=== PATIENT | female | born 1950 | race African-American/Black ===

== ENCOUNTER → 2016-08-27 | Outpatient (CLI) | payer MEDICARE, MEDICAID ==
[~2016-08-27] MED LIST: ASPI-1035 PO; BENA40TA3 PO; CLON0.2T PO; COLC0.6T66 PO; DILT240C3 PO; HYDR-523 PO; HYDR25TA PO; METO100T5 PO; NICO1PAT16 TD; OMEP20TA80 PO
== END | disposition home or self-care (01) ==
LOC: US 07:26
PROVIDERS: ATTEND Internal Medicine Gastroenterology
DX: B19.20 Unspecified viral hepatitis C without hepatic coma (principal)
CPT/HCPCS: 76700

== ENCOUNTER 2017-01-31 18:41 | Emergency (ER) | payer MEDICARE, MEDICAID ==
[~2017-01-31] VITALS: Ht 157.5 cm; Wt 70.0 kg
[~2017-01-31 18:41] MED LIST changes: -ASPI-1035 PO; +ASPI-1159 PO; +OMEP20TA2 PO; -OMEP20TA80 PO
[2017-01-31] MEDS ORDERED: TETANUS, DIPHTHERIA, PERTUSSIS VAC/PF 0.5ML (>7YR OLD) IM ONE (22:30)
[2017-01-31] MEDS ORDERED: IBUPROFEN 600MG TABLET PO ONE (22:30)
[2017-01-31] MEDS ORDERED: HYDROCODONE/ACETAMINOPHEN 5/325MG TABLET PO ONE (22:45)
[2017-02-01] MEDS ORDERED: BACITRACIN ZINC OINT UDPKT TOP ONE (00:15)
[2017-02-01 00:45] VITALS: BP 106/86
== END 2017-02-01 00:45 | disposition home or self-care (01) ==
LOC: ER 22:02
DX: R07.9 Chest pain, unspecified (principal); F17.200 Nicotine dependence, unspecified, uncomplicated; I11.9 Hypertensive heart disease without heart failure; I25.10 Atherosclerotic heart disease of native coronary artery without angina pectoris; Z79.82 Long term (current) use of aspirin; W54.0XXA Bitten by dog, initial encounter; Y93.89 Activity, other specified; Y92.89 Other specified places as the place of occurrence of the external cause; Y99.8 Other external cause status
CPT/HCPCS: 74022; 90471; 90715; 99284

== ENCOUNTER 2017-03-28 13:09 | Inpatient (IN) | payer MEDICARE, MEDICAID ==
[~2017-03-28] VITALS: Ht 160 cm; Wt 73.1 kg
[2017-03-28] MEDS ORDERED: LABETALOL HCL 20MG/4ML CARPUJECT IV PRN (14:15)
[2017-03-28 14:39] LABS: BASOPHILS % 0.7 % (0.0-2.0); EOSINOPHILS % 1.2 % (0.0-5.0); HEMOGLOBIN. 13.6 g/dL (12.0-16.0); LYMPHOCYTES % 31.6 % (20.0-50.0); MEAN CORPUSCULAR HEMOGLOBIN 30.1 pg (28.0-32.0); MEAN CORPUSCULAR VOLUME 88.8 fL (81.0-99.0); MEAN PLATELET VOLUME 9.9 fl (7.4-10.4); MONOCYTES % 5.6 % (2.0-8.0); NEUTROPHILS % 60.9 % (40.0-76.0); PLATELET 149 x1000/uL (130-400); RED CELL DISTRIBUTION WIDTH 14.4 % (11.6-14.6)
[2017-03-28 14:42] LABS: PROTHROMBIN TIME 10.6 sec (9.4-11.6)
[2017-03-28 14:48] LABS: CARBON DIOXIDE 31 mEq/L (21-32); CHLORIDE 106 mEq/L (98-107); TROPONIN I 0.03 ng/mL (0.00-0.04)
[2017-03-28] MEDS ORDERED: HYDROCODONE/ACETAMINOPHEN 5/325MG TABLET PO ONE (15:15)
[2017-03-28 16:13] LABS: CLARITY URINE CLEAR (CLEAR); COLOR URINE YELLOW (YELLOW); GLUCOSE URINE NEGATIVE (NEGATIVE); KETONES URINE NEGATIVE (NEGATIVE); LEUKOCYTE ESTERASE URINE TRACE (NEGATIVE); NITRITE URINE NEGATIVE (NEGATIVE); OCCULT BLOOD URINE 1+ (NEGATIVE); PH URINE 5.5 (4.5-8.0); PROTEIN URINE NEGATIVE (NEGATIVE); UROBILINOGEN URINE 0.2 E.U./dL (0.2-1.0)
[2017-03-28] MEDS ORDERED: LABETALOL 5MG/ML SYR 20 MG/4 ML SYRINGE IV PRN (17:00)
[2017-03-28 17:20] VITALS: BP 193/86
[2017-03-28] MEDS ORDERED: ACETAMINOPHEN 325MG TABLET PO PRN (18:45)
[2017-03-28] MEDS ORDERED: LORAZEPAM 0.5MG TABLET PO PRN (18:45)
[2017-03-28] MEDS ORDERED: POTASSIUM CHLORIDE 20MEQ TABLET SR PO NR (19:00)
[2017-03-28 20:00] VITALS: BP 198/88
[2017-03-28] MEDS: IPRATROPIUM/ALBUTEROL 0.5-3(2.5)MG/3ML NEB HHN SCH (20:17)
[2017-03-28] MEDS: BENAZEPRIL 20MG TABLET PO SCH (20:25)
[2017-03-28] MEDS: CLONIDINE 0.1MG TABLET PO PRN (20:25)
[2017-03-28] MEDS: ENOXAPARIN 40MG/0.4ML SYR SUBCUT SCH (20:26)
[2017-03-28] MEDS: ZOLPIDEM TARTRATE 5MG TABLET PO PRN (21:54)
[2017-03-28] MEDS ORDERED: COLCHICINE 0.6MG TABLET PO SCH (22:15)
[2017-03-28] MEDS: HYDROCODONE/ACETAMINOPHEN 5/325MG TABLET PO PRN (22:48)
[2017-03-28] MEDS: COLCHICINE 0.6MG TABLET PO SCH (22:49)
[2017-03-29] VITALS: BP 157/74
[2017-03-29] MEDS: IPRATROPIUM/ALBUTEROL 0.5-3(2.5)MG/3ML NEB HHN SCH ×6 (00:15→21:02)
[2017-03-29] MEDS: NICOTINE 21MG PATCH TD SCH ×2 (00:48→09:17)
[2017-03-29 04:00] VITALS: BP 165/84
[2017-03-29] MEDS: CLONIDINE 0.1MG TABLET PO PRN ×2 (05:13→11:55)
[2017-03-29 06:58] LABS: HEMATOCRIT. 36.4 % (36.0-48.0); HEMOGLOBIN. 12.3 g/dL (12.0-16.0); MEAN CORPUSCULAR HEMOGLOBIN 30.3 pg (28.0-32.0); MEAN CORPUSCULAR VOLUME 89.2 fL (81.0-99.0); MEAN PLATELET VOLUME 10.5 fl (7.4-10.4); PLATELET 125 x1000/uL (130-400); RED BLOOD CELL COUNT 4.08 mill/uL (4.2-5.4); RED CELL DISTRIBUTION WIDTH 14.6 % (11.6-14.6)
[2017-03-29 07:11] LABS: *AMPHETAMINES SCREEN URINE NEGATIVE (NEGATIVE); *BARBITURATES SCREEN URINE NEGATIVE (NEGATIVE); *BENZODIAZEPINES SCREEN URINE NEGATIVE (NEGATIVE); *COCAINE SCREEN URINE NEGATIVE (NEGATIVE); CANNABINOID URINE SCREEN PRESUMTIVE POSITIVE (NEGATIVE); METHADONE URINE SCREEN NEGATIVE (NEGATIVE); OPIATES URINE SCREEN PRESUMTIVE POSITIVE (NEGATIVE); PHENCYCLIDINE URINE SCREEN NEGATIVE (NEGATIVE)
[2017-03-29 07:26] LABS: CARBON DIOXIDE 30 mEq/L (21-32); CHLORIDE 103 mEq/L (98-107); HDL CHOLESTEROL 43 mg/dL (40-59); LDL CHOLESTEROL 77 mg/dL (5-100)
[2017-03-29 08:00] VITALS: BP 157/73
[2017-03-29] MEDS: ASPIRIN 81MG EC TABLET PO SCH (08:39)
[2017-03-29] MEDS: HYDROCHLOROTHIAZIDE 25MG TABLET PO SCH (08:39)
[2017-03-29] MEDS: BENAZEPRIL 20MG TABLET PO SCH (08:39)
[2017-03-29] MEDS: COLCHICINE 0.6MG TABLET PO SCH ×2 (08:39→21:11)
[2017-03-29] MEDS: OMEPRAZOLE 20MG CAPSULE EXTENDED RELEASE PO SCH (08:39)
[2017-03-29] MEDS: DOCUSATE SODIUM 100MG CAPSULE PO SCH (08:40)
[2017-03-29] MEDS: POTASSIUM CHLORIDE 20MEQ TABLET SR PO SCH (08:40)
[2017-03-29] MEDS: METOPROLOL TARTRATE 100MG TABLET PO SCH ×2 (08:40→21:11)
[2017-03-29] MEDS: HYDROCODONE/ACETAMINOPHEN 5/325MG TABLET PO PRN (08:41)
[2017-03-29] MEDS: DILTIAZEM HCL 300MG CAPSULE SR 24HR PO SCH (09:17)
[2017-03-29 09:47] LABS: VITAMIN B12 SERUM 259 pg/mL (211-911)
[2017-03-29] MEDS: ONDANSETRON HCL 4MG/2ML VIAL IV PRN (11:55)
[2017-03-29 12:00] VITALS: BP_SYST 164; BP_SYST 165; BP_SYST 174; BP_DIAS 83; BP_DIAS 93; BP_DIAS 94
[2017-03-29 16:00] VITALS: BP 138/76
[2017-03-29 20:00] VITALS: BP_SYST 154; BP_SYST 161; BP_SYST 167; BP_DIAS 75; BP_DIAS 77; BP_DIAS 82
[2017-03-29] MEDS: ENOXAPARIN 40MG/0.4ML SYR SUBCUT SCH (21:11)
[2017-03-29] MEDS: ZOLPIDEM TARTRATE 5MG TABLET PO PRN (23:15)
[2017-03-29 23:41] LABS: PLATELET ESTIMATE SLIGHTLY DECREASED
[2017-03-30] VITALS: BP 147/84
[2017-03-30] MEDS: IPRATROPIUM/ALBUTEROL 0.5-3(2.5)MG/3ML NEB HHN SCH ×6 (00:21→20:17)
[2017-03-30 04:00] VITALS: BP 144/78
[2017-03-30] MEDS: OMEPRAZOLE 20MG CAPSULE EXTENDED RELEASE PO SCH (07:34)
[2017-03-30 08:00] VITALS: BP_SYST 171; BP_SYST 174; BP_DIAS 79; BP_DIAS 90; BP_DIAS 95
[2017-03-30] MEDS ORDERED: SORBITOL 70% SOLN 30ML PO PRN (08:00)
[2017-03-30] MEDS: HYDROCODONE/ACETAMINOPHEN 5/325MG TABLET PO PRN ×2 (08:06→20:23)
[2017-03-30] MEDS: DILTIAZEM HCL 300MG CAPSULE SR 24HR PO SCH (09:47)
[2017-03-30] MEDS: NICOTINE 21MG PATCH TD SCH (09:47)
[2017-03-30] MEDS: CAPSAICIN 0.075% CREAM 60GM TOP SCH ×2 (09:47→22:59)
[2017-03-30] MEDS: HYDROCHLOROTHIAZIDE 25MG TABLET PO SCH (09:47)
[2017-03-30] MEDS: DOCUSATE SODIUM 100MG CAPSULE PO SCH (09:48)
[2017-03-30] MEDS: BENAZEPRIL 20MG TABLET PO SCH (09:49)
[2017-03-30] MEDS: COLCHICINE 0.6MG TABLET PO SCH (09:49)
[2017-03-30] MEDS: METOPROLOL TARTRATE 100MG TABLET PO SCH ×2 (09:49→20:21)
[2017-03-30] MEDS: POTASSIUM CHLORIDE 20MEQ TABLET SR PO SCH (09:49)
[2017-03-30] MEDS: ASPIRIN 81MG EC TABLET PO SCH (09:50)
[2017-03-30] MEDS: CYANOCOBALAMIN 1000MCG/ML VIAL IM SCH (09:50)
[2017-03-30] MEDS: ONDANSETRON HCL 4MG/2ML VIAL IV PRN (11:43)
[2017-03-30 12:00] VITALS: BP 155/90
[2017-03-30 16:00] VITALS: BP_SYST 159; BP_SYST 163; BP_SYST 169; BP_DIAS 72; BP_DIAS 75; BP_DIAS 77
[2017-03-30] MEDS: CLONIDINE 0.1MG TABLET PO PRN ×2 (16:50→23:10)
[2017-03-30 20:00] VITALS: BP_SYST 144; BP_SYST 153; BP_SYST 154; BP_DIAS 65; BP_DIAS 72; BP_DIAS 73
[2017-03-30] MEDS: ENOXAPARIN 40MG/0.4ML SYR SUBCUT SCH (20:23)
[2017-03-30] MEDS: ZOLPIDEM TARTRATE 5MG TABLET PO PRN (22:59)
[2017-03-31] VITALS: BP 158/77
[2017-03-31] MEDS: IPRATROPIUM/ALBUTEROL 0.5-3(2.5)MG/3ML NEB HHN SCH ×3 (00:27→07:40)
[2017-03-31 04:00] VITALS: BP 134/67
[2017-03-31] MEDS: HYDROCODONE/ACETAMINOPHEN 5/325MG TABLET PO PRN ×2 (04:52→11:03)
[2017-03-31] MEDS: CAPSAICIN 0.075% CREAM 60GM TOP SCH (05:27)
[2017-03-31 07:08] LABS: BASOPHILS % 0.8 % (0.0-2.0); EOSINOPHILS % 4.2 % (0.0-5.0); HEMATOCRIT. 40.6 % (36.0-48.0); HEMOGLOBIN. 13.6 g/dL (12.0-16.0); LYMPHOCYTES % 49.5 % (20.0-50.0); MEAN CORPUSCULAR HEMOGLOBIN 30.2 pg (28.0-32.0); MEAN CORPUSCULAR VOLUME 90.5 fL (81.0-99.0); MONOCYTES % 6.6 % (2.0-8.0); NEUTROPHILS % 38.9 % (40.0-76.0); PLATELET 139 x1000/uL (130-400); RED BLOOD CELL COUNT 4.49 mill/uL (4.2-5.4); RED CELL DISTRIBUTION WIDTH 14.7 % (11.6-14.6)
[2017-03-31 07:28] LABS: CARBON DIOXIDE 28 mEq/L (21-32); CHLORIDE 105 mEq/L (98-107)
[2017-03-31 08:00] VITALS: BP_SYST 116; BP_SYST 119; BP_SYST 125; BP_DIAS 68; BP_DIAS 69; BP_DIAS 71
[2017-03-31] MEDS: NICOTINE 21MG PATCH TD SCH (08:43)
[2017-03-31] MEDS: BENAZEPRIL 20MG TABLET PO SCH (08:44)
[2017-03-31] MEDS: CYANOCOBALAMIN 1000MCG/ML VIAL IM SCH (08:44)
[2017-03-31] MEDS: DILTIAZEM HCL 300MG CAPSULE SR 24HR PO SCH (08:45)
[2017-03-31] MEDS: OMEPRAZOLE 20MG CAPSULE EXTENDED RELEASE PO SCH (08:45)
[2017-03-31] MEDS: DOCUSATE SODIUM 100MG CAPSULE PO SCH (08:45)
[2017-03-31] MEDS: ASPIRIN 81MG EC TABLET PO SCH (08:45)
[2017-03-31] MEDS: POTASSIUM CHLORIDE 20MEQ TABLET SR PO SCH (08:45)
[2017-03-31] MEDS: COLCHICINE 0.6MG TABLET PO SCH (08:48)
[2017-03-31] MEDS: METOPROLOL TARTRATE 100MG TABLET PO SCH (08:49)
[2017-03-31] MEDS: HYDROCHLOROTHIAZIDE 25MG TABLET PO SCH (08:50)
[2017-03-31 10:40] VITALS: BP 125/71
[2017-03-31 11:03] VITALS: BP 125/71
[2017-04-01 19:12] LABS: ANTI-DNA DOUBLE STRANDED QUANT 1 IU/mL (0-9); ANTI-NUCLEAR ANTIBODIES DIRECT Negative (Negative)
[2017-04-04] MEDS ORDERED: CLONIDINE HCL 0.3MG/24HR PATCH TD SCH (09:00)
== END 2017-03-31 12:15 | disposition home or self-care (01) | DRG 293 ==
LOC: ER 14:40 → 7WST 15:19 → ENRESERV 15:26 → 7WST 18:28
PROVIDERS: ADMIT Internal Medicine Geriatric Medicine; ATTEND Internal Medicine Geriatric Medicine
DX: I11.0 Hypertensive heart disease with heart failure (principal); D69.6 Thrombocytopenia, unspecified; J44.9 Chronic obstructive pulmonary disease, unspecified; I25.10 Atherosclerotic heart disease of native coronary artery without angina pectoris; I50.9 Heart failure, unspecified; G90.8 Other disorders of autonomic nervous system; E87.6 Hypokalemia; F12.10 Cannabis abuse, uncomplicated; F17.200 Nicotine dependence, unspecified, uncomplicated; M10.9 Gout, unspecified; K59.00 Constipation, unspecified; M19.90 Unspecified osteoarthritis, unspecified site; Z79.899 Other long term (current) drug therapy; Z86.73 Personal history of transient ischemic attack (TIA), and cerebral infarction without residual deficits; Z95.1 Presence of aortocoronary bypass graft; Z86.19 Personal history of other infectious and parasitic diseases; Z79.82 Long term (current) use of aspirin
CPT/HCPCS: 36415; 70551; 71010; 80048; 80053; 80061; 80305; 81001; 82270; 82607; 83036; 84484; 85025; 85610; 85651; 86038; 86225; 87077; 87086; 93005; 93306; 93880; 94640; 96374; 97162; 99285; J1650; J2405; J3420; J3490; J7620

== ENCOUNTER 2018-04-22 07:03 | Inpatient (IN) | payer MEDICARE, MEDICAID ==
[~2018-04-22] VITALS: Ht 157.5 cm; Wt 70.8 kg
[2018-04-22] VITALS (9 sets, daily range): BP systolic 131–194; BP diastolic 69–116
[~2018-04-22 07:03] MED LIST changes: -BENA40TA3 PO; +BENA40TA9 PO; -CLON0.2T PO; -HYDR25TA PO; +METO100T16 PO; -METO100T5 PO
[2018-04-22] MEDS ORDERED: LIP40 MT (08:45)
[2018-04-22] MEDS ORDERED: CLON1PAT12 TP (08:45)
[2018-04-22] MEDS ORDERED: ALLO100T MT (08:45)
[2018-04-22] MEDS ORDERED: LIDOCAINE HCL 1% 20ML VIAL (Pyxis) INJ ONE (09:10)
[2018-04-22] MEDS ORDERED: IODIXANOL 320MG/ML 100 ML BOTTLE IV ONE ×2 (09:11→10:28)
[2018-04-22] MEDS ORDERED: FENTANYL CITRATE/PF 50MCG/ML 2ML VIAL ONE ×2 (09:56→11:02)
[2018-04-22] MEDS ORDERED: MIDAZOLAM HCL 2 MG/2 ML VIAL ONE ×2 (09:56→11:02)
[2018-04-22] MEDS ORDERED: IOHEXOL-300 100 ML BOTTLE ONE (10:14)
[2018-04-22] MEDS ORDERED: HYDRALAZINE 20MG/ML VIAL ONE (11:11)
[2018-04-22] MEDS ORDERED: ASPIRIN 325MG TABLET ONE (11:29)
[2018-04-22] MEDS ORDERED: CLOPIDOGREL 75MG TABLET ONE (11:29)
[2018-04-22] MEDS ORDERED: ACETAMINOPHEN 325MG TABLET PO PRN (11:30)
[2018-04-22] MEDS ORDERED: ATROPINE SULFATE 1MG/10ML SYR IV PRN (11:30)
[2018-04-22] MEDS ORDERED: ONDANSETRON HCL 4MG/2ML INJ IV PRN (11:30)
[2018-04-22] MEDS ORDERED: LORAZEPAM 2MG/ML CPJ IM PRN (13:15)
[2018-04-22] MEDS: LORAZEPAM 2MG/ML CPJ IV PRN ×2 (14:03→20:16)
[2018-04-22] MEDS ORDERED: IPRATROPIUM/ALBUTEROL 0.5-3(2.5)MG/3ML NEB HHN PRN (14:45)
[2018-04-22] MEDS ORDERED: HEPARIN SODIUM 1,000 UNIT/1ML VIAL IV ONE (14:55)
[2018-04-22] MEDS ORDERED: MORPHINE SULFATE 4 MG/ML CPJ (NOT FOR IM USE) IV NR (15:00)
[2018-04-22] MEDS ORDERED: MORPHINE SULFATE 4 MG/ML CPJ (NOT FOR IM USE) IV SCH (15:05)
[2018-04-22] MEDS ORDERED: MORPHINE SULFATE 4 MG/ML CPJ (NOT FOR IM USE) IV PRN ×2 (15:30→15:45)
[2018-04-22] MEDS ORDERED: NITROGLYCERIN 50MCG/ML 10ML VIAL (CATH LAB) IV ONE (15:55)
[2018-04-22] MEDS ORDERED: NICARDIPINE 100MCG/ML 10ML VIAL (CATH LAB) IV ONE (15:55)
[2018-04-22] MEDS ORDERED: HYDROCODONE/ACETAMINOPHEN 5/325MG TABLET PO PRN (18:15)
[2018-04-22] MEDS ORDERED: ENALAPRIL 1.25 MG in DEXTROSE 5% WATER 49 ML IV PRN (18:30)
[2018-04-22] MEDS ORDERED: ENALAPRIL 1.25MG/ML VIAL 1ML IV PRN (18:45)
[2018-04-22] MEDS: OMEPRAZOLE 20MG CAPSULE EXTENDED RELEASE PO SCH (20:11)
[2018-04-22] MEDS: ATORVASTATIN CALCIUM 40MG TABLET PO SCH (20:11)
[2018-04-22] MEDS: METOPROLOL TARTRATE 100MG TABLET PO SCH (20:12)
[2018-04-22] MEDS ORDERED: ZOLPIDEM TARTRATE 5MG TABLET PO SCH (21:00)
[2018-04-23] VITALS (8 sets, daily range): BP systolic 96–172; BP diastolic 54–81
[2018-04-23] MEDS: OMEPRAZOLE 20MG CAPSULE EXTENDED RELEASE PO SCH (06:15)
[2018-04-23 06:17] LABS: BASOPHILS % 0.6 % (0.0-2.0); HEMATOCRIT. 34.8 % (36.0-48.0); HEMOGLOBIN. 11.6 g/dL (12.0-16.0); LYMPHOCYTES % 13.4 % (20.0-50.0); MEAN CORPUSCULAR HEMOGLOBIN 29.1 pg (28.0-32.0); MEAN CORPUSCULAR VOLUME 86.8 fL (81.0-99.0); MEAN PLATELET VOLUME 11.6 fl (7.4-10.4); MONOCYTES % 8.9 % (2.0-8.0); NEUTROPHILS % 74.1 % (40.0-76.0); PLATELET 86 x1000/uL (130-400); RED CELL DISTRIBUTION WIDTH 16.1 % (11.6-14.6)
[2018-04-23 07:17] LABS: CHLORIDE 102 mEq/L (98-107)
[2018-04-23] MEDS ORDERED: POTASSIUM CHLORIDE 20MEQ TABLET SR PO SCH (07:45)
[2018-04-23] MEDS: ATORVASTATIN CALCIUM 40MG TABLET PO SCH (08:03)
[2018-04-23] MEDS: METOPROLOL TARTRATE 100MG TABLET PO SCH (08:05)
[2018-04-23] MEDS ORDERED: DILTIAZEM HCL 120MG CAPSULE SR 12HR PO SCH (09:00)
[2018-04-23] MEDS ORDERED: ALLOPURINOL 100 MG TABLET PO SCH (09:00)
[2018-04-23] MEDS ORDERED: CLOPIDOGREL 75MG TABLET PO SCH (09:00)
[2018-04-23] MEDS ORDERED: ASPIRIN 325MG TABLET PO SCH (09:00)
[2018-04-23] MEDS ORDERED: BENAZEPRIL 10MG TABLET PO SCH (09:00)
== END 2018-04-23 13:00 | disposition home or self-care (01) | DRG 247 ==
LOC: CCL 07:03 → 3WST 07:04
PROVIDERS: ADMIT Specialist; ATTEND Specialist
PROC: 4A023N7 Measurement of Cardiac Sampling and Pressure, Left Heart, Percutaneous Approach (ICD-10-PCS; principal; 2018-04-22)
PROC: 027034Z Dilation of Coronary Artery, One Artery with Drug-eluting Intraluminal Device, Percutaneous Approach (ICD-10-PCS; 2018-04-22)
PROC: B2111ZZ Fluoroscopy of Multiple Coronary Arteries using Low Osmolar Contrast (ICD-10-PCS; 2018-04-22)
PROC: B2151ZZ Fluoroscopy of Left Heart using Low Osmolar Contrast (ICD-10-PCS; 2018-04-22)
PROC: B2131ZZ Fluoroscopy of Multiple Coronary Artery Bypass Grafts using Low Osmolar Contrast (ICD-10-PCS; 2018-04-22)
DX: I25.10 Atherosclerotic heart disease of native coronary artery without angina pectoris (principal); E78.5 Hyperlipidemia, unspecified; F41.9 Anxiety disorder, unspecified; I11.9 Hypertensive heart disease without heart failure; I27.20 Pulmonary hypertension, unspecified; J44.9 Chronic obstructive pulmonary disease, unspecified; K21.9 Gastro-esophageal reflux disease without esophagitis; Z95.1 Presence of aortocoronary bypass graft; I25.2 Old myocardial infarction; Z95.5 Presence of coronary angioplasty implant and graft; Z79.899 Other long term (current) drug therapy
CPT/HCPCS: 36415; 80048; 85347; 92928; 92978; 93005; 93459; 94640; C1725; C1753; C1760; C1769; C1874; C1887; C1893; J0360; J1644; J2060; J2250; J2270; J3010; J3490; J7030; J7620; Q9967

== ENCOUNTER 2019-01-16 08:58 | Inpatient (IN) | payer MEDICARE, MEDICAID ==
[~2019-01-16] VITALS: Ht 160 cm; Wt 70.3 kg
[~2019-01-16 08:58] MED LIST changes: +ALLO100T MT; -ASPI-1159 PO; +ASPI-1393 PO; +CLON1PAT12 TP; +LIP40 MT
[2019-01-16] MEDS ORDERED: ASPIRIN 81MG TABLET PO ONE (09:45)
[2019-01-16] MEDS: NITROGLYCERIN 0.4MG TABLET SL SL PRN ×2 (09:50→11:15)
[2019-01-16 10:17] LABS: BASOPHILS % 0.7 % (0.0-2.0); EOSINOPHILS % 1.2 % (0.0-5.0); HEMATOCRIT. 35.4 % (36.0-48.0); HEMOGLOBIN. 11.8 g/dL (12.0-16.0); LYMPHOCYTES % 25.1 % (20.0-50.0); MEAN CORPUSCULAR HEMOGLOBIN 29.5 pg (28.0-32.0); MEAN CORPUSCULAR VOLUME 88.9 fL (81.0-99.0); MEAN PLATELET VOLUME 10.7 fl (7.4-10.4); MONOCYTES % 8.1 % (2.0-8.0); NEUTROPHILS % 64.9 % (40.0-76.0); PLATELET 112 x1000/uL (130-400); RED BLOOD CELL COUNT 3.98 mill/uL (4.2-5.4); RED CELL DISTRIBUTION WIDTH 14.9 % (11.6-14.6)
[2019-01-16 10:25] LABS: CHLORIDE 111 mEq/L (98-107)
[2019-01-16] MEDS ORDERED: HYDRALAZINE HCL 100MG TABLET PO ONE (10:45)
[2019-01-16] MEDS ORDERED: IPRATROPIUM/ALBUTEROL 0.5-3(2.5)MG/3ML NEB INH PRN (11:15)
[2019-01-16] MEDS ORDERED: NIFEDIPINE XL 90MG TAB PO ONE (11:15)
[2019-01-16] MEDS ORDERED: CLONIDINE 0.1MG TABLET PO PRN (11:15)
[2019-01-16] MEDS ORDERED: POTASSIUM CHLORIDE 10MEQ TABLET SR PO NR (11:15)
[2019-01-16] MEDS ORDERED: ONDANSETRON HCL 4MG/2ML INJ IV PRN (11:15)
[2019-01-16] MEDS ORDERED: ACETAMINOPHEN 325MG TABLET PO PRN (11:15)
[2019-01-16] MEDS ORDERED: GUAIFENESIN 200MG/10ML SUGAR FREE UDC PO PRN (11:15)
[2019-01-16] MEDS ORDERED: ISOSORBIDE MONONITRATE 30MG TABLET SR 24HR PO SCH (11:15)
[2019-01-16] MEDS ORDERED: FUROSEMIDE 40MG/4ML VIAL IVP NR (11:15)
[2019-01-16] MEDS ORDERED: LORAZEPAM 0.5MG TABLET PO PRN (11:15)
[2019-01-16] MEDS: IPRATROPIUM/ALBUTEROL 0.5-3(2.5)MG/3ML NEB HHN SCH (11:47)
[2019-01-16 12:30] VITALS: BP 195/76
[2019-01-16] MEDS ORDERED: POTASSIUM CHLORIDE 10MEQ TABLET SR PO SCH (12:30)
[2019-01-16] MEDS ORDERED: CLOPIDOGREL 75MG TABLET PO NR (12:30)
[2019-01-16 12:35] VITALS: BP 195/76
[2019-01-16] MEDS: BENAZEPRIL 10MG TABLET PO SCH (13:53)
[2019-01-16] MEDS: ENOXAPARIN 40MG/0.4ML SYR SUBCUT SCH (13:54)
[2019-01-16] MEDS: DILTIAZEM HCL 60MG TABLET PO SCH ×2 (13:54→20:52)
[2019-01-16 16:00] VITALS: BP 163/73
[2019-01-16] MEDS ORDERED: NIFEDIPINE XL 90MG TAB PO SCH (17:00)
[2019-01-16 18:42] LABS: CLARITY URINE CLEAR (CLEAR); COLOR URINE YELLOW (YELLOW); KETONES URINE NEGATIVE (NEGATIVE); LEUKOCYTE ESTERASE URINE NEGATIVE (NEGATIVE); NITRITE URINE NEGATIVE (NEGATIVE); OCCULT BLOOD URINE NEGATIVE (NEGATIVE); PROTEIN URINE NEGATIVE (NEGATIVE); SPECIFIC GRAVITY URINE 1.005 (1.005-1.030); UROBILINOGEN URINE 0.2 E.U./dL (0.2-1.0)
[2019-01-16 18:52] LABS: OPIATES URINE SCREEN NEGATIVE (NEGATIVE)
[2019-01-16 18:53] LABS: *AMPHETAMINES SCREEN URINE NEGATIVE (NEGATIVE); *BARBITURATES SCREEN URINE NEGATIVE (NEGATIVE); *BENZODIAZEPINES SCREEN URINE NEGATIVE (NEGATIVE); *COCAINE SCREEN URINE NEGATIVE (NEGATIVE); CANNABINOID URINE SCREEN NEGATIVE (NEGATIVE); METHADONE URINE SCREEN NEGATIVE (NEGATIVE); PHENCYCLIDINE URINE SCREEN NEGATIVE (NEGATIVE)
[2019-01-16 20:00] VITALS: BP 154/89
[2019-01-16] MEDS: ZOLPIDEM TARTRATE 5MG TABLET PO PRN (20:52)
[2019-01-16] MEDS: ATORVASTATIN CALCIUM 40MG TABLET PO SCH (20:52)
[2019-01-16] MEDS: FUROSEMIDE 100MG/10ML VIAL IVP SCH (20:59)
[2019-01-17 00:11] VITALS: BP 116/64
[2019-01-17] MEDS: HYDROCODONE/ACETAMINOPHEN 5/325MG TABLET PO PRN ×3 (00:16→23:34)
[2019-01-17 00:17] LABS: CREATINE KINASE MB FRACTION 1.2 ng/mL (0.5-3.6)
[2019-01-17] MEDS: IPRATROPIUM/ALBUTEROL 0.5-3(2.5)MG/3ML NEB HHN SCH ×6 (00:27→20:35)
[2019-01-17 04:00] VITALS: BP 126/62
[2019-01-17] MEDS: DILTIAZEM HCL 60MG TABLET PO SCH ×3 (07:07→21:39)
[2019-01-17 07:22] LABS: BASOPHILS % 0.3 % (0.0-2.0); EOSINOPHILS % 1.1 % (0.0-5.0); HEMATOCRIT. 33.7 % (36.0-48.0); HEMOGLOBIN. 11.3 g/dL (12.0-16.0); LYMPHOCYTES % 29.4 % (20.0-50.0); MEAN CORPUSCULAR HEMOGLOBIN 29.9 pg (28.0-32.0); MEAN CORPUSCULAR VOLUME 88.9 fL (81.0-99.0); MEAN PLATELET VOLUME 10.7 fl (7.4-10.4); NEUTROPHILS % 58.2 % (40.0-76.0); PLATELET 112 x1000/uL (130-400); RED BLOOD CELL COUNT 3.79 mill/uL (4.2-5.4); RED CELL DISTRIBUTION WIDTH 15.1 % (11.6-14.6)
[2019-01-17 07:34] LABS: CHLORIDE 105 mEq/L (98-107)
[2019-01-17 07:41] LABS: LDL CHOLESTEROL 40 mg/dL (5-100)
[2019-01-17 07:42] LABS: HDL CHOLESTEROL 43 mg/dL (40-59)
[2019-01-17 08:00] VITALS: BP 113/54
[2019-01-17] MEDS: BENAZEPRIL 10MG TABLET PO SCH (08:44)
[2019-01-17] MEDS: ALLOPURINOL 100 MG TABLET PO SCH (08:44)
[2019-01-17] MEDS: FUROSEMIDE 100MG/10ML VIAL IVP SCH ×2 (08:44→21:39)
[2019-01-17] MEDS: ENOXAPARIN 40MG/0.4ML SYR SUBCUT SCH (08:45)
[2019-01-17] MEDS: CLOPIDOGREL 75MG TABLET PO SCH (08:45)
[2019-01-17] MEDS ORDERED: NIFEDIPINE XL 90MG TAB PO SCH (09:00)
[2019-01-17] MEDS ORDERED: POTASSIUM CHLORIDE 10MEQ TABLET SR PO SCH (09:00)
[2019-01-17] MEDS ORDERED: FUROSEMIDE 40MG/4ML VIAL IVP SCH (09:00)
[2019-01-17] MEDS ORDERED: POTASSIUM CHLORIDE 20MEQ TABLET SR PO NR (11:00)
[2019-01-17 11:06] LABS: BG BASE EXCESS 2.7 mmol/L (-2.0-2.0); BG CARBOXYHEMOGLOBIN 0.2 % (0.5-1.5); BG DEOXYHEMOGLOBIN 4.3 % (0.0-5.0); BG FRACTION INSPIRED OXYGEN 32; BG HCO3 ACT 26.7 mmol/L (22.0-26.0); BG METHEMOGLOBIN 0.2 % (0.0-1.5); BG OXYGEN SATURATION 95.7 % (92.0-98.5); BG OXYHEMOGLOBIN 95.3 % (94.0-97.0); BG PCO2 38.7 mmHg (35.0-45.0); BG PH 7.456 (7.350-7.450); BG PO2 79.2 mmHg (75.0-100.0); BG SAMPLE SITE RIGHT BRACHIAL; BG TOTAL HEMOGLOBIN 12.2 g/dL (12.0-18.0); BG VENT MODE NASAL CANNULA
[2019-01-17] MEDS: ASPIRIN 81MG EC TABLET PO SCH (11:08)
[2019-01-17 12:00] VITALS: BP 123/63
[2019-01-17 16:00] VITALS: BP 101/61
[2019-01-17 20:00] VITALS: BP 106/61
[2019-01-17] MEDS: ATORVASTATIN CALCIUM 40MG TABLET PO SCH (21:39)
[2019-01-18] VITALS: BP 110/70
[2019-01-18] MEDS: IPRATROPIUM/ALBUTEROL 0.5-3(2.5)MG/3ML NEB HHN SCH ×5 (00:15→21:16)
[2019-01-18 04:00] VITALS: BP 110/70
[2019-01-18] MEDS: HYDROCODONE/ACETAMINOPHEN 5/325MG TABLET PO PRN ×2 (05:04→18:33)
[2019-01-18] MEDS: DILTIAZEM HCL 60MG TABLET PO SCH ×3 (06:38→22:13)
[2019-01-18 06:41] VITALS: BP 120/68
[2019-01-18 07:46] LABS: BASOPHILS % 0.4 % (0.0-2.0); EOSINOPHILS % 1.1 % (0.0-5.0); HEMATOCRIT. 34.2 % (36.0-48.0); HEMOGLOBIN. 11.5 g/dL (12.0-16.0); LYMPHOCYTES % 25.6 % (20.0-50.0); MEAN CORPUSCULAR HEMOGLOBIN 29.8 pg (28.0-32.0); MEAN CORPUSCULAR VOLUME 88.7 fL (81.0-99.0); MEAN PLATELET VOLUME 11.1 fl (7.4-10.4); MONOCYTES % 11.3 % (2.0-8.0); NEUTROPHILS % 61.6 % (40.0-76.0); PLATELET 110 x1000/uL (130-400); RED BLOOD CELL COUNT 3.85 mill/uL (4.2-5.4); RED CELL DISTRIBUTION WIDTH 14.7 % (11.6-14.6)
[2019-01-18 08:00] VITALS: BP 122/69
[2019-01-18 08:07] LABS: CHLORIDE 103 mEq/L (98-107)
[2019-01-18] MEDS ORDERED: CLONIDINE HCL 0.3MG/24HR PATCH TD SCH (09:00)
[2019-01-18] MEDS: CLOPIDOGREL 75MG TABLET PO SCH (09:32)
[2019-01-18] MEDS: ENOXAPARIN 40MG/0.4ML SYR SUBCUT SCH (09:32)
[2019-01-18] MEDS: ASPIRIN 81MG EC TABLET PO SCH (09:32)
[2019-01-18] MEDS: ALLOPURINOL 100 MG TABLET PO SCH (09:33)
[2019-01-18] MEDS: FUROSEMIDE 40MG TABLET PO SCH (09:33)
[2019-01-18] MEDS: POTASSIUM CHLORIDE 20MEQ TABLET SR PO SCH (09:33)
[2019-01-18] MEDS: BENAZEPRIL 10MG TABLET PO SCH (09:33)
[2019-01-18] MEDS: NICOTINE 21MG PATCH TD SCH (09:34)
[2019-01-18] MEDS ORDERED: MAGNESIUM 4 G PREMIX 100 ML IV NR (10:00)
[2019-01-18] MEDS ORDERED: OMEPRAZOLE 20MG CAPSULE EXTENDED RELEASE PO SCH (16:00)
[2019-01-18 20:00] VITALS: BP 142/68
[2019-01-18] MEDS: ATORVASTATIN CALCIUM 40MG TABLET PO SCH (22:14)
[2019-01-18] MEDS: ZOLPIDEM TARTRATE 5MG TABLET PO PRN (22:14)
[2019-01-18] MEDS: OMEPRAZOLE 20MG CAPSULE EXTENDED RELEASE PO SCH (22:14)
[2019-01-19] VITALS: BP 135/71
[2019-01-19] MEDS: IPRATROPIUM/ALBUTEROL 0.5-3(2.5)MG/3ML NEB HHN SCH ×5 (02:14→15:22)
[2019-01-19 04:00] VITALS: BP 149/75
[2019-01-19] MEDS: OMEPRAZOLE 20MG CAPSULE EXTENDED RELEASE PO SCH ×2 (06:27→15:05)
[2019-01-19] MEDS: DILTIAZEM HCL 60MG TABLET PO SCH ×2 (06:27→15:06)
[2019-01-19 08:00] VITALS: BP 110/53
[2019-01-19] MEDS: ALLOPURINOL 100 MG TABLET PO SCH (09:00)
[2019-01-19] MEDS: ENOXAPARIN 40MG/0.4ML SYR SUBCUT SCH (09:32)
[2019-01-19] MEDS: BENAZEPRIL 10MG TABLET PO SCH (09:34)
[2019-01-19] MEDS: POTASSIUM CHLORIDE 20MEQ TABLET SR PO SCH (09:34)
[2019-01-19] MEDS: CLOPIDOGREL 75MG TABLET PO SCH (09:35)
[2019-01-19] MEDS: ASPIRIN 81MG EC TABLET PO SCH (09:35)
[2019-01-19] MEDS: FUROSEMIDE 40MG TABLET PO SCH (09:35)
[2019-01-19] MEDS: NICOTINE 21MG PATCH TD SCH (09:35)
[2019-01-19 12:00] VITALS: BP 106/87
[2019-01-19 16:00] VITALS: BP 148/74
[2019-01-19] MEDS: HYDROCODONE/ACETAMINOPHEN 5/325MG TABLET PO PRN (16:44)
[2019-01-19 17:02] VITALS: BP 148/74
[2019-01-21 11:03] LABS: BASOPHILS % 0.2 % (0.0-2.0); EOSINOPHILS % 3.4 % (0.0-5.0); HEMATOCRIT. 38.8 % (36.0-48.0); HEMOGLOBIN. 12.6 g/dL (12.0-16.0); MEAN CORPUSCULAR HEMOGLOBIN 29.2 pg (28.0-32.0); MEAN CORPUSCULAR VOLUME 89.9 fL (81.0-99.0); MEAN PLATELET VOLUME 9.7 fl (7.4-10.4); MONOCYTES % 12.2 % (2.0-8.0); NEUTROPHILS % 51.2 % (40.0-76.0); PLATELET 133 x1000/uL (130-400); RED BLOOD CELL COUNT 4.32 mill/uL (4.2-5.4)
[2019-01-21 11:32] LABS: CHLORIDE 104 mEq/L (98-107)
== END 2019-01-19 17:33 | DRG 190 ==
LOC: ER 08:58 → EDBEDREQ 11:18 → ENRESERV 11:46 → 5WST 12:22
PROVIDERS: ADMIT Internal Medicine Geriatric Medicine; ATTEND Internal Medicine Geriatric Medicine
DX: J44.1 Chronic obstructive pulmonary disease with (acute) exacerbation (principal); I50.23 Acute on chronic systolic (congestive) heart failure; I25.110 Atherosclerotic heart disease of native coronary artery with unstable angina pectoris; I16.9 Hypertensive crisis, unspecified; I24.9 Acute ischemic heart disease, unspecified; I11.0 Hypertensive heart disease with heart failure; D63.8 Anemia in other chronic diseases classified elsewhere; F41.1 Generalized anxiety disorder; E87.6 Hypokalemia; E78.5 Hyperlipidemia, unspecified; F17.200 Nicotine dependence, unspecified, uncomplicated; M19.90 Unspecified osteoarthritis, unspecified site; M10.9 Gout, unspecified; R00.1 Bradycardia, unspecified; I27.20 Pulmonary hypertension, unspecified; K21.9 Gastro-esophageal reflux disease without esophagitis; E83.42 Hypomagnesemia; Z79.02 Long term (current) use of antithrombotics/antiplatelets; Z95.1 Presence of aortocoronary bypass graft; Z79.899 Other long term (current) drug therapy; Z95.5 Presence of coronary angioplasty implant and graft; I25.2 Old myocardial infarction; Z91.048 Other nonmedicinal substance allergy status; Z79.82 Long term (current) use of aspirin; Z79.1 Long term (current) use of non-steroidal anti-inflammatories (NSAID); Z90.49 Acquired absence of other specified parts of digestive tract; Z71.6 Tobacco abuse counseling
CPT/HCPCS: 36415; 36600; 71045; 80048; 80061; 80305; 81003; 82375; 82553; 82805; 83036; 83735; 83880; 84484; 93005; 93306; 94640; 96374; 97162; 99285; J1650; J1940; J3475; J7620

== ENCOUNTER 2019-01-19 17:35 | Inpatient (IN) | payer MEDICARE, MEDICAID ==
[~2019-01-19] VITALS: Ht 152.4 cm; Wt 1.4 kg
[2019-01-19 20:00] VITALS: BP 150/82
[2019-01-19] MEDS ORDERED: ACETAMINOPHEN 325MG TABLET PO PRN (21:45)
[2019-01-19] MEDS ORDERED: CLONIDINE 0.1MG TABLET PO PRN (21:45)
[2019-01-19] MEDS ORDERED: ONDANSETRON HCL 4MG/2ML INJ IV PRN (21:45)
[2019-01-19] MEDS ORDERED: IPRATROPIUM/ALBUTEROL 0.5-3(2.5)MG/3ML NEB HHN PRN (21:45)
[2019-01-19] MEDS: DILTIAZEM HCL 60MG TABLET PO SCH (22:00)
[2019-01-19] MEDS ORDERED: LACTULOSE 20G/30ML UDC PO NR (22:00)
[2019-01-19] MEDS ORDERED: LORAZEPAM 0.5MG TABLET PO PRN (22:00)
[2019-01-19] MEDS ORDERED: OMEPRAZOLE 20MG CAPSULE EXTENDED RELEASE PO SCH (22:00)
[2019-01-19] MEDS: ATORVASTATIN CALCIUM 40MG TABLET PO SCH (22:22)
[2019-01-19] MEDS: ZOLPIDEM TARTRATE 5MG TABLET PO PRN (22:43)
[2019-01-20] MEDS: IPRATROPIUM/ALBUTEROL 0.5-3(2.5)MG/3ML NEB HHN SCH ×2 (00:42→04:44)
[2019-01-20 01:00] VITALS: BP 150/82
[2019-01-20] MEDS: DILTIAZEM HCL 60MG TABLET PO SCH ×3 (06:18→21:25)
[2019-01-20] MEDS: OMEPRAZOLE 20MG CAPSULE EXTENDED RELEASE PO SCH (06:19)
[2019-01-20 07:55] VITALS: BP 136/74
[2019-01-20] MEDS: BENAZEPRIL 10MG TABLET PO SCH (08:44)
[2019-01-20] MEDS: NICOTINE 14MG PATCH TOP SCH (08:44)
[2019-01-20] MEDS: CLOPIDOGREL 75MG TABLET PO SCH (08:45)
[2019-01-20] MEDS: FUROSEMIDE 40MG TABLET PO SCH (08:45)
[2019-01-20] MEDS: ASPIRIN 81MG TABLET PO SCH (08:45)
[2019-01-20] MEDS: ALLOPURINOL 100 MG TABLET PO SCH (08:45)
[2019-01-20] MEDS: POTASSIUM CHLORIDE 20MEQ TABLET SR PO SCH (08:45)
[2019-01-20] MEDS: DOCUSATE SODIUM 250MG CAPSULE PO SCH (08:45)
[2019-01-20] MEDS: ENOXAPARIN 40MG/0.4ML SYR SUBCUT SCH (08:45)
[2019-01-20 20:00] VITALS: BP 146/71
[2019-01-20] MEDS ORDERED: ATORVASTATIN CALCIUM 40MG TABLET PO SCH (21:00)
[2019-01-20] MEDS: ATORVASTATIN CALCIUM 40MG TABLET PO SCH (21:25)
[2019-01-20] MEDS: HYDROCODONE/ACETAMINOPHEN 5/325MG TABLET PO PRN (22:35)
[2019-01-21] MEDS: DILTIAZEM HCL 60MG TABLET PO SCH ×3 (06:26→21:17)
[2019-01-21] MEDS: OMEPRAZOLE 20MG CAPSULE EXTENDED RELEASE PO SCH (06:27)
[2019-01-21 08:00] VITALS: BP 111/56
[2019-01-21] MEDS: CLOPIDOGREL 75MG TABLET PO SCH (08:55)
[2019-01-21] MEDS: NICOTINE 14MG PATCH TOP SCH (08:55)
[2019-01-21] MEDS: DOCUSATE SODIUM 250MG CAPSULE PO SCH (08:55)
[2019-01-21] MEDS: ASPIRIN 81MG TABLET PO SCH (08:55)
[2019-01-21] MEDS: POTASSIUM CHLORIDE 20MEQ TABLET SR PO SCH (08:55)
[2019-01-21] MEDS: ENOXAPARIN 40MG/0.4ML SYR SUBCUT SCH (08:56)
[2019-01-21] MEDS: BENAZEPRIL 10MG TABLET PO SCH (08:58)
[2019-01-21] MEDS: ALLOPURINOL 100 MG TABLET PO SCH (10:45)
[2019-01-21] MEDS: FUROSEMIDE 40MG TABLET PO SCH (10:58)
[2019-01-21 16:51] LABS: BASOPHILS % 0.9 % (0.0-2.0); EOSINOPHILS % 4.3 % (0.0-5.0); HEMATOCRIT. 39.5 % (36.0-48.0); HEMOGLOBIN. 13.2 g/dL (12.0-16.0); LYMPHOCYTES % 32.3 % (20.0-50.0); MEAN CORPUSCULAR HEMOGLOBIN 30.3 pg (28.0-32.0); MEAN CORPUSCULAR VOLUME 90.2 fL (81.0-99.0); MEAN PLATELET VOLUME 10.6 fl (7.4-10.4); MONOCYTES % 10.4 % (2.0-8.0); NEUTROPHILS % 52.1 % (40.0-76.0); PLATELET 151 x1000/uL (130-400); RED BLOOD CELL COUNT 4.38 mill/uL (4.2-5.4)
[2019-01-21 20:00] VITALS: BP 138/70
[2019-01-21] MEDS: ATORVASTATIN CALCIUM 40MG TABLET PO SCH (21:17)
[2019-01-21] MEDS: HYDROCODONE/ACETAMINOPHEN 5/325MG TABLET PO PRN (23:29)
[2019-01-22] MEDS: GUAIFENESIN 200MG/10ML SUGAR FREE UDC PO PRN ×2 (02:29→20:51)
[2019-01-22] MEDS: DILTIAZEM HCL 60MG TABLET PO SCH ×3 (05:45→20:48)
[2019-01-22 08:00] VITALS: BP 93/66
[2019-01-22] MEDS: DOCUSATE SODIUM 250MG CAPSULE PO SCH (09:00)
[2019-01-22] MEDS: BENAZEPRIL 10MG TABLET PO SCH (09:00)
[2019-01-22] MEDS: FAMOTIDINE 20MG TABLET PO SCH (09:28)
[2019-01-22] MEDS: POTASSIUM CHLORIDE 20MEQ TABLET SR PO SCH (09:29)
[2019-01-22] MEDS: FUROSEMIDE 40MG TABLET PO SCH (09:29)
[2019-01-22] MEDS: CLOPIDOGREL 75MG TABLET PO SCH (09:29)
[2019-01-22] MEDS: ASPIRIN 81MG TABLET PO SCH (09:29)
[2019-01-22] MEDS: ALLOPURINOL 100 MG TABLET PO SCH (09:29)
[2019-01-22] MEDS: NICOTINE 14MG PATCH TOP SCH (09:30)
[2019-01-22] MEDS: ENOXAPARIN 40MG/0.4ML SYR SUBCUT SCH (09:30)
[2019-01-22] MEDS: HYDROCODONE/ACETAMINOPHEN 5/325MG TABLET PO PRN (12:35)
[2019-01-22 20:00] VITALS: BP 131/77
[2019-01-22] MEDS ORDERED: HYDR100T26 MT (20:04)
[2019-01-22] MEDS ORDERED: ALPR-339 MT (20:05)
[2019-01-22] MEDS ORDERED: CLOP75TA4 MT (20:06)
[2019-01-22] MEDS: ATORVASTATIN CALCIUM 40MG TABLET PO SCH (20:48)
[2019-01-22] MEDS: ZOLPIDEM TARTRATE 5MG TABLET PO PRN (20:51)
[2019-01-23] MEDS: DILTIAZEM HCL 60MG TABLET PO SCH ×2 (06:39→14:36)
[2019-01-23] MEDS: ASPIRIN 81MG TABLET PO SCH (08:49)
[2019-01-23] MEDS: CLOPIDOGREL 75MG TABLET PO SCH (08:49)
[2019-01-23] MEDS: ALLOPURINOL 100 MG TABLET PO SCH (08:50)
[2019-01-23] MEDS: POTASSIUM CHLORIDE 20MEQ TABLET SR PO SCH (08:50)
[2019-01-23] MEDS: FUROSEMIDE 40MG TABLET PO SCH (08:50)
[2019-01-23] MEDS: FAMOTIDINE 20MG TABLET PO SCH (08:50)
[2019-01-23] MEDS: DOCUSATE SODIUM 250MG CAPSULE PO SCH (08:50)
[2019-01-23] MEDS: ENOXAPARIN 40MG/0.4ML SYR SUBCUT SCH ×2 (08:51→08:59)
[2019-01-23] MEDS: BENAZEPRIL 10MG TABLET PO SCH (08:51)
[2019-01-23] MEDS: NICOTINE 14MG PATCH TOP SCH (08:51)
[2019-01-23 09:21] VITALS: BP 106/65
[2019-01-23 11:11] VITALS: BP 106/65
[2019-01-26] MEDS ORDERED: CLONIDINE HCL 0.3MG/24HR PATCH TD SCH (09:00)
== END 2019-01-23 16:20 | disposition home health service (06) | DRG 292 ==
PROVIDERS: ADMIT Psychiatry & Neurology Neurology; ATTEND Internal Medicine Geriatric Medicine
DX: I11.0 Hypertensive heart disease with heart failure (principal); J44.1 Chronic obstructive pulmonary disease with (acute) exacerbation; F17.210 Nicotine dependence, cigarettes, uncomplicated; I50.23 Acute on chronic systolic (congestive) heart failure; E78.5 Hyperlipidemia, unspecified; F06.31 Mood disorder due to known physiological condition with depressive features; I25.10 Atherosclerotic heart disease of native coronary artery without angina pectoris; J44.9 Chronic obstructive pulmonary disease, unspecified; R53.81 Other malaise; K59.00 Constipation, unspecified; I27.20 Pulmonary hypertension, unspecified; D63.8 Anemia in other chronic diseases classified elsewhere; F41.1 Generalized anxiety disorder; E87.6 Hypokalemia; E83.42 Hypomagnesemia; I25.2 Old myocardial infarction; Z95.5 Presence of coronary angioplasty implant and graft; Z95.1 Presence of aortocoronary bypass graft
CPT/HCPCS: 36415; 80048; 83735; 93970; 94640; 97110; 97116; 97161; 97166; 97530; 97535; J1650; J7620

== ENCOUNTER → 2019-03-09 | Outpatient (CLI) | payer MEDICARE, MEDICAID ==
[~2019-03-09] MED LIST changes: +ALPR-339 MT; +CLOP75TA4 MT; -DILT240C3 PO; +HYDR100T26 MT; -METO100T16 PO; -NICO1PAT16 TD
== END | disposition home or self-care (01) ==
LOC: MRI 07:44
PROVIDERS: ATTEND Internal Medicine Geriatric Medicine
DX: I65.23 Occlusion and stenosis of bilateral carotid arteries (principal)
CPT/HCPCS: 70544